=== PATIENT | female | born 1940 | race Caucasian/White ===

== ENCOUNTER 2017-08-16 08:32 | Emergency (ER) | payer MEDICARE, OTHER ==
[2017-08-16] MEDS ORDERED: oxyCOD/ACETAMIN 5 MG/325 MG TABLET PO STA (09:21)
--- NOTE | 2017-08-16 09:24 | ED Physician Documentation ---
PD HPI Fall - Stated complaint Stated Complaint: LOWER BACK PX - Chief complaint Chief Complaint: Back Pain - History obtained from History obtained from: Patient, Family (spouse) - History of Present Illness Mechanism of injury: Lost balance Fall distance: Standing position Where injury occurred: Other ([facility]) Timing - onset: Last night Injury(ies) location: Back Quality of pain: Pain Associated symptoms: No: LOC Worsens with: Movement Similar symptoms before: Has not had sx before - Additional information Additional information: The patient is a 77-year-old female, visiting from [place], who bent over after taking a shower last night in the [facility] room, lost her balance, and fell backwards. She impacted her back on the edge of the tub, and hit her head on the wall. This morning the pain in her back is limiting her ability to get up from bed, or ambulate. She denies headache, nausea or vomiting. She denies abdominal pain, numbness or weakness, she denies urinary incontinence. She has no prior history of similar back pain. Review of Systems Constitutional: denies: Fever Eyes: denies: Decreased vision Ears: denies: Tinnitus/ringing Nose: denies: Congestion Throat: denies: Sore throat Cardiac: denies: Chest pain / pressure Respiratory: denies: Dyspnea, Cough GI: denies: Abdominal Pain, Nausea, Vomiting : denies: Dysuria, Incontinent Skin: denies: Rash, Abrasion (s) Musculoskeletal: reports: Back pain. denies: Neck pain, Extremity pain Neurologic: denies: Focal weakness, Numbness, Headache, LOC PD PAST MEDICAL HISTORY - Past Medical History Past Medical History: Yes Cardiovascular: Hypertension, High cholesterol Respiratory: CPAP use GI: GERD Musculoskeletal: Osteoporosis - Past Surgical History General: Appendectomy /LITIGATION SUPPORT ANALYST: section - Present Medications Home Medications: Ambulatory Orders Medication Instructions Recorded Confirmed Aspirin [Adult Aspirin] 81 08/16/17 Atorvastatin [Lipitor] 20 mg 08/16/17 Calcium Carbonate/Vitamin D3 1 tab 08/16/17 [Calcium 600-Vit D3 400 Tablet] HYDROcod/ACETAM 5/325 [Vicodin 1 - 2 ea PO Q6H PRN #15 tablet 08/16/17 5/325] Meclizine [Antivert] 12.5 mg 08/16/17 Mirabegron [Myrbetriq] 50 mg 08/16/17 Nitrofurantoin [Macrobid] 100 mg PO BID #10 capsule 08/16/17 Omeprazole 20 mg 08/16/17 Triamterene/Hydrochlorothiazid 1 tab 08/16/17 [Triamterene-Hctz 37.5-25 mg Cp] - Allergies Allergies/Adverse Reactions: Allergies Allergy/AdvReac Type Severity Reaction Status Date / Time No Known Drug Allergies Allergy Verified 08/16/17 08:43 - Social History Does the pt smoke?: No Smoking Status: Never smoker Does the pt drink ETOH?: Yes Does the pt have substance abuse?: No PD ED PE NORMAL - Vitals Vital signs reviewed: Yes (Initially hypertensive) - General General: Alert and oriented X 3, Well developed/nourished - HEENT HEENT: PERRL, EOMI, Ears normal, Pharynx benign, Other (No scalp hematoma, or bony step-off palpated.) - Neck Neck: No bony TTP, No JVD - Cardiac Cardiac: RRR, No murmur - Respiratory Respiratory: No respiratory distress, Clear bilaterally - Abdomen Abdomen: Soft, Non tender - Back Back: Other (Tenderness to palpation in the lower thoracic spine and right paraspinous region. No ecchymosis or break in the integument.) - Derm Derm: No rash - Extremities Extremities: No edema, No calf tenderness / cord - Neuro Neuro: Alert and oriented X 3, No motor deficit, No sensory deficit, Normal speech Results - Vitals Vitals: Vital Signs - 24 hr 08/16/17 08/16/17 08/16/17 08:38 10:16 12:17 Temperature 36.6 C 36.9 C Heart Rate 77 66 65 Respiratory 16 16 17 Rate Blood Pressure 153/71 H 128/72 157/76 H O2 Saturation 96 98 97 Oxygen O2 Source Room air - Labs Labs: Laboratory Tests 08/16/17 09:42 Urine Color YELLOW Urine Clarity HAZY Urine pH 6.5 Ur Specific [place] <=1.005 Urine Protein NEGATIVE Urine Glucose (UA) NEGATIVE Urine Ketones NEGATIVE Urine Occult Blood NEGATIVE Urine Nitrite POSITIVE H Urine Bilirubin NEGATIVE Urine Urobilinogen 0.2 (NORMAL) Ur Leukocyte Esterase LARGE H Urine RBC 0-5 Urine WBC >25 H Urine WBC Clumps PRESENT Ur Squamous Epith Cells FEW Squamous Urine Bacteria Many H Ur Microscopic Review INDICATED Urine Culture Comments INDICATED PD MEDICAL DECISION MAKING - ED course Complexity details: reviewed results, re-evaluated patient, considered differential, d/w patient, d/w family ED course: Patient's presentation is most consistent with contusion to her mid to lower back secondary to fall. Her urinalysis is also positive for bacteriuria and pyuria, consistent with acute cystitis. I do not think she has pyelonephritis nor sepsis. X-ray of her lumbar spine including lower thoracic segments reveals no acute fracture or vertebral compression. Treatment in the emergency department included administration of Percocet 1 tablet orally, which improved the patient's pain. Macrobid 100 mg administered orally. She is being discharged with prescriptions for Macrobid and for Vicodin , 15 tablets. I discussed with her and her the expected course of illness, antibiotic treatment and outpatient follow-up, as well as potentially worrisome signs or symptoms that should prompt reevaluation in the emergency department. - Sepsis Event Vital Signs: Vital Signs - 24 hr 08/16/17 08/16/17 08/16/17 08:38 10:16 12:17 Temperature 36.6 C 36.9 C Heart Rate 77 66 65 Respiratory 16 16 17 Rate Blood Pressure 153/71 H 128/72 157/76 H O2 Saturation 96 98 97 Oxygen O2 Source Room air Departure - Departure Disposition: 01 Home, Self Care Clinical Impression: Fall Qualifiers: Encounter type: initial encounter Qualified Code(s): W19.XXXA - Unspecified fall, initial encounter Back contusion Qualifiers: Encounter type: initial encounter Laterality: unspecified laterality Qualified Code(s): S20.229A - Contusion of unspecified back wall of thorax, initial encounter UTI (urinary tract infection) Qualifiers: Urinary tract infection type: acute cystitis Hematuria presence: without hematuria Qualified Code(s): N30.00 - Acute cystitis without hematuria Condition: Stable Instructions: ED Contusion Back, ED UTI Cystitis Female Prescriptions: HYDROcod/ACETAM 5/325 [Vicodin 5/325] 1 - 2 ea PO Q6H PRN #15 tablet PRN Reason: Pain Nitrofurantoin [Macrobid] 100 mg PO BID #10 capsule Comments: Drink plenty of fluids, including cranberry juice. Take Macrobid twice daily as prescribed. You can use Vicodin as prescribed if needed for pain. Follow up with your primary physician upon return to [place]. Return to the emergency department if you develop increasing pain, fever with shaking chills, persistent vomiting, or otherwise worsening symptoms
[2017-08-16 10:00] LABS: BILIRUBIN,URINE NEGATIVE (NEGATIVE); GLUCOSE, URINE (UA) NEGATIVE (NEGATIVE); KETONES,URINE (UA) NEGATIVE (NEGATIVE); LEUKOCYTE ESTERASE, URINE LARGE (NEGATIVE); NITRITE,URINE POSITIVE (NEGATIVE); OCCULT BLOOD,URINE NEGATIVE (NEGATIVE); PH,URINE 6.5 PH (5.0-7.5); PROTEIN,URINE NEGATIVE (NEGATIVE); UROBILINOGEN,URINE 0.2 (NORMAL) E.U./dL (NORMAL)
[2017-08-16 10:01] LABS: CLARITY,URINE HAZY (CLEAR)
[2017-08-16 10:13] LABS: WBC CLUMPS,URINE PRESENT
[2017-08-16 10:14] LABS: BACTERIA,URINE Many /HPF (None Seen); RBC,URINE 0-5 /HPF (0-5); SQUAMOUS EPITHELIAL CELL,UR FEW Squamous (<= Few)
--- NOTE | 2017-08-16 11:36 | XRAY Report ---
Procedure Date: 08/16/2017 Accession Number: [id number] / [id number] Procedure: XR - Lumbar Spine 2 View CPT Code: FULL RESULT: EXAM: LUMBOSACRAL SPINE RADIOGRAPHY EXAM DATE: 08/16/2017 11:12 AM. CLINICAL HISTORY: Fall with back injury. COMPARISONS: None. TECHNIQUE: 3 views. FINDINGS: Alignment: Mild convex right lower lumbar scoliosis. Bones: Five [id number] lumbar vertebral bodies are present. No fractures or bone lesions. Disks: Mild loss of disk space height throughout the lumbar spine. Small anterior osteophytes. Facets: No degenerative changes. Sacroiliac Joints: Unremarkable. Soft Tissues: Abdominal aortic atherosclerotic calcifications. Prominent stool within right hemicolon. No dilated bowel. IMPRESSION: 1. Mild multilevel degenerative changes. 2. No fracture evident. RADIA
[2017-08-16] MEDS ORDERED: NITROFURANTOIN MACRO 100 MG CAPSULE PO STA (12:11)
[2017-08-16 12:29] VITALS: BP 152/79
== END 2017-08-16 12:32 | disposition home or self-care (01) ==
LOC: ED 08:32
DX: S30.0XXA Contusion of lower back and pelvis, initial encounter (principal); W18.2XXA Fall in (into) shower or empty bathtub, initial encounter; Y93.E1 Activity, personal bathing and showering; Y92.59 Other trade areas as the place of occurrence of the external cause; N30.00 Acute cystitis without hematuria; I10 Essential (primary) hypertension; E78.00 Pure hypercholesterolemia, unspecified; K21.9 Gastro-esophageal reflux disease without esophagitis; M81.0 Age-related osteoporosis without current pathological fracture; Z79.82 Long term (current) use of aspirin
CPT/HCPCS: 72100; 81001; 87086; 87181; 99283; A9270; 81003